=== PATIENT | female | born 1995 | race Asian ===

== ENCOUNTER 2022-05-28 08:03 | Observation (INO) ==
--- NOTE | 2022-05-23 10:31 | Anesthesiology Consultation ---
Date of Service May 23, 2022 Assessment & Plan (1) Encounter for pre-operative examination: Plan - s/p hysterectomy and salpingectomy 04/01/2223 Grade 1 view, MAC 3, ETT 7.5. - COVID screening: Per addressing machine operator on 05/23/2022: Travel screen negative, no known COVID-19 positive contacts or current COVID-19 related symptoms in past 2 weeks. To surgeon's discretion if preop COVID testing is needed. Chart Review Chart Review: Acceptable Risk for Surgery and Patient NOT seen in Pre Admission Testing History Surgery Operation Date: 05/28/22 07:30 Proposed Procedures p Bilateral Mastectomy with Free Nipple Grafting and Suction Assisted Lipectomy - Kira Rowe MD Height/Weight Height: 5 ft 7 in Weight: 98.43 kg Allergies Allergy/AdvReac Type Severity Reaction Status Date / Time No Known Allergies Allergy Verified 05/23/22 09:38 Medications Home Medications Medication Instructions Recorded Confirmed Last Taken testosterone cypionate 200 mg/mL 50 mg subcut WK 01/08/21 05/23/22 03/23/22 20:00 intramuscular oil fluoxetine 40 mg capsule (Prozac) 40 mg PO QAM 12/24/21 05/23/22 03/31/22 22:00 aprepitant 40 mg capsule 40 mg PO DAILY 1 day #1 cap 05/13/22 05/23/22 Unknown cephalexin 500 mg capsule 500 mg PO TID 7 days #21 caps 05/13/22 05/23/22 Unknown oxycodone-acetaminophen 5 mg-325 1 tab PO Q4H PRN pain 3 days #18 05/13/22 05/23/22 Unknown mg tablet (Percocet) tabs Past Medical History Medical History ADHD Asthma no inhalers > very mild Depression with anxiety Gender dysphoria in adult Migraines infrequent Polycystic ovaries Tuberculosis 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 baby > treated Past Family History Family History Grandmother (Maternal) Cervical cancer Denies family history of Ovarian cancer Breast cancer Colorectal cancer Past Surgical History Surgical History H/O removal of cyst axillary area H/O wisdom tooth extraction S/P laparoscopic appendectomy S/P laparoscopic hysterectomy mar 2022, bilateral salpingectomies Social History Smoking Status: Never smoker Do You Dip or Chew Tobacco: No Hx Alcohol Use: No Hx Substance Use: No substance use type: does not use Lab Results Anesthesia Preop Results Results Anesthesia Widget: WBC 5.93 K/ul (4.8-10.8) 05/15/22 Hgb 16.4 g/dl (12.0-16.0) H 05/15/22 Hct 50.6 % (37.0-47.0) H 05/15/22 Plt 312 K/uL (130-400) 05/15/22 Na 139 mmol/L (136-145) 05/15/22 K 3.9 mmol/L (3.5-5.1) 05/15/22 Cl 103 mmol/L (98-107) 05/15/22 CO2 27 mmol/L (21-32) 05/15/22 BUN 11 mg/dl (6-23) 05/15/22 Creat 0.82 mg/dl (0.6-1.2) 05/15/22 Glucose Level 107 mg/dl (70-99(Fasting)) H 05/15/22 PT 10.3 Seconds (9.0-12.0) 05/15/22 INR 1.0 (0.9-1.1) 05/15/22 POC Ur Test NEG (NEG) 04/01/22 Blood Type A Positive 04/01/22 Antibody Screen NEGATIVE 04/01/22
[~2022-05-28 08:03] MED LIST: LR 15ML/HR IV SCH; ceFAZolin 2000MG 2,000 MG/15 ML SYR IV SCH
[2022-05-28] MEDS ORDERED: ROCURONIUM BROMIDE 10 MG/ML 5 ML VIAL IV ONE ×4 (08:53→13:09)
[2022-05-28] MEDS ORDERED: LIDOCAINE 2% MPF LOCAL 5 ML VIAL ONE (08:53)
[2022-05-28] MEDS ORDERED: fentaNYL citrate PF 100 MCG/2 ML VIAL ONE ×3 (08:53→13:09)
[2022-05-28] MEDS ORDERED: ONDANSETRON INJ 2 MG/ML 2 ML VIAL ONE (08:53)
[2022-05-28] MEDS ORDERED: PROPOFOL IV EMULSION 10 MG/ML 20 ML VIAL IV ONE ×2 (08:53→13:09)
[2022-05-28] MEDS ORDERED: MIDAZOLAM HCL 1 MG/ML 2ML VIAL ONE (08:53)
[2022-05-28] MEDS ORDERED: ATROPINE SULFATE 0.1 MG/ML 10ML SYR IV PRN (09:02)
[2022-05-28] MEDS ORDERED: ONDANSETRON INJ 2 MG/ML 2 ML VIAL IV PRN ×2 (09:02→16:00)
[2022-05-28] MEDS ORDERED: ePHEDrine sulfate 50 MG/ML AMP IV PRN (09:02)
[2022-05-28] MEDS ORDERED: fentaNYL citrate PF 100 MCG/2 ML VIAL IV PRN (09:02)
--- NOTE | 2022-05-28 10:07 | History & Physical Bridge Note ---
Date of Service May 28, 2022 History & Physical Bridge Note I have examined the patient, reviewed the History & Physical and in the interval since the performance of the History & Physical I have noted the following changes of clinical significance: no changes noted
[2022-05-28] MEDS ORDERED: ACETAMINOPHEN 1000 MG/100 ML IV IV ONE (10:18)
[2022-05-28] MEDS ORDERED: LIDOCAINE/EPINEPHRINE 1% 20 ML VIAL ONE (10:20)
[2022-05-28] MEDS ORDERED: EPINEPHrine INJ 1 MG/ML AMP ONE (10:20)
[2022-05-28] MEDS ORDERED: LIDOCAINE 1% LOCAL 20 ML VIAL ONE (10:20)
[2022-05-28] MEDS ORDERED: BUPIVACAINE 0.25% PF 30 ML VIAL ONE (10:21)
[2022-05-28] MEDS ORDERED: FAMOTIDINE/PF 20 MG/2 ML VIAL IV ONE (13:00)
[2022-05-28] MEDS ORDERED: KETAMINE 50 MG/5 ML SYRINGE ONE (13:13)
[2022-05-28] MEDS ORDERED: ceFAZolin 330 MG/ML 1 GM VIAL ONE (13:48)
[2022-05-28] MEDS ORDERED: SUGAMMADEX SODIUM 200 MG/2 ML VIAL IV ONE (14:13)
--- NOTE | 2022-05-28 14:24 | Post Operative Brief Note ---
PG Immediate Post Op with CF Date of Surgery May 28, 2022 Pre & Post Diagnosis Operation Date: 05/28/22 09:50 Pre-Op Diagnosis: Gender Dysphoria in Adult Post-Op Diagnosis: Gender Dysphoria in Adult I identified the patient and participated in the time-out.: Yes Procedure Operation Date: 05/28/22 09:50 Actual Procedures p Bilateral Non-Cancerous Mastectomy with Free Nipple Grafting and Suction Assisted Lipectomy of Trunk(Bilateral) - Kira Rowe MD Surgeon Kira Rowe MD Striker Out Rayne Mccoy PA-C Estimated Blood Loss 20 Findings Consistent with Post-Op Diagnosis Specimens Specimen Description: A. Left Breast Tissue B. Right Breast Tissue Drains Husam-Godoy Drain
--- NOTE | 2022-05-28 14:39 | Operative Report ---
PG Post Operative Report Pre & Post Diagnosis Operation Date: 05/28/22 09:50 Pre-Op Diagnosis: Gender Dysphoria in Adult Post-Op Diagnosis: Gender Dysphoria in Adult I identified the patient and participated in the time-out.: Yes Procedure Operation Date: 05/28/22 09:50 Actual Procedures p Bilateral Non-Cancerous Mastectomy with Free Nipple Grafting and Suction Assisted Lipectomy of Trunk(Bilateral) - Kira Rowe MD Surgeon Kira Rowe MD Nutrition Specialist Rayne Mccoy PA-C Estimated Blood Loss 20 Findings Consistent with Post-Op Diagnosis Specimens bilateral breast tissue to pathology Drains [id number] Anesthesia Type General Complications none Indications transgender male desiring gender affirming mastectomy Description of Procedure The risks benefits and alternatives of the procedure were explained the patient agreed and signed consent. He was identified and marked in the preoperative holding area. I marked the incisions along the inframammary folds and made the superior incision in an elliptical fashion in order to provide a horizontal scar pattern if possible. I also marked the position where anticipated placing the nipple areolar complex and had the patient confirmed the site. Site marking was adjusted due to patient preference. He is brought to the operating room where he was placed under general anesthesia in supine position without incident. Surgical site was prepped and draped sterilely. A time-out procedure was performed. 1% lidocaine with epinephrine was used to anesthetize the planned incisions. I began the procedure on the left side by making a small stab incision along the superior incision. Tumescent fluid consisting of lidocaine plain, epinephrine, and lactated Ringer's was infiltrated along the lateral border of the pectoralis major. Liposuction to this area was performed using a 3 mm suction cannula until there was improvement in the volume and contour of the axillary breast and fat covering lateral pectoralis. A total of 400 cc of tumescent fluid was used and there was a return of approximately 350 cc of lipoaspirate. End point of liposuction was improvement in contour and bloody aspirate. The left nipple areolar complex was harvested as a free nipple graft. I elected to use a 28 mm size nipple areolar complex. It was harvested using a 15 blade scalpel and was defatted using a curved iris scissor. It was placed on the back table in a saline soaked sponge until I was ready to place the graft. I began by making the inferior incision using 15 blade scalpel. Incision was deepened through dermis using electrocautery, and deepened down to the chest wall. I began raising the breast off of underlying pectoralis fascia, divided the breast in the midline and then temporarily sutured it to the inframammary fold to confirm wound closure would be possible. I then marked the superior incision, which was made with a 15 blade scalpel and deepened using electrocautery. The breast was passed off as specimen. Superiorly, breast was undermined to the clavicle and the superior flap was further thinned until it was of uniform thickness, approximately 3 cm in thickness and equal to the thickness of the abdominal subcutaneous tissue. Throughout dissection, hemostasis was achieved using the bovie. I did perform some additional undermining inferiorly along the inframammary fold to facilitate closure and disrupt the inframammary fold. Prior to closure, the wound was irrigated, examined for hemostasis. A 15 Yemeni Sunny drain was placed in the wound bed and brought out through a separate stab incision laterally.Superficial fascia and deep dermis was closed using 2-0 Vicryl interrupted sutures, superficial dermis closed using 3-0 PDO running Quill suture, and subcuticular wound closure was performed using 3-0 Monocryl. Following closure, the nipple areolar complex was inset. I made a circular incision at the lateral border of pectoralis and just superior to the incision. This was de-epithelialized. The nipple areolar graft was inset first using 5-0 plain gut suture. An identical procedure was performed on the right side.8 4-0 silk tie over bolster sutures were placed, and a Xeroform and cotton bolster was placed. An identical procedure was performed on the right side. There is excellent symmetry at the close of the case. Dermabond Prineo was applied to the incisions. Dry dressing followed by a binder were placed. Rayne Mccoy was present and scrubbed throughout the entire procedure and was instrumental in assisting in retraction, assisting in simultaneous wound closure, and preparing the nipple areolar complex grafts. I attest to the content of the Intraoperative Record and any orders documented therein. Any exceptions are noted below.
--- NOTE | 2022-05-28 14:56 | Anesthesiology Progress Note ---
Date of Service May 28, 2022 Anesthesia Post Procedure Vital Signs Vital Signs: Temp Pulse Pulse Resp BP Pulse Ox O2 Del Method 05/28/22 14:45 36.2 C L 85 20 97/59 L 93 Oxymask 05/28/22 14:37 36.2 C L 88 14 110/55 L 93 Oxymask 05/28/22 08:29 36.8 C 84 20 136/70 96 Room Air O2 Flow Rate 05/28/22 14:45 10 05/28/22 14:37 10 05/28/22 08:29 Transfer of Care Handoff Completed per policy Notes Mental Status: alert / awake / arousable and participated in evaluation Patient Amnestic to Procedure: Yes Nausea / Vomiting: adequately controlled Pain: adequately controlled Airway Patency, RR, SpO2: stable & adequate BP & HR: stable & adequate Hydration State: stable & adequate Anesthetic Complications: no major complications apparent and Pt Satisfied with anesthetic care
[2022-05-28] MEDS ORDERED: PROMETHAZINE HCL 12.5 MG in SODIUM CHLORIDE 0.9% 50 ML IV PRN (16:00)
[2022-05-28] MEDS ORDERED: diphenhydrAMINE 50 MG/ML VIAL IV PRN (16:00)
[2022-05-28] MEDS ORDERED: oxyCODONE/ACETAMINOPHEN 5mg/325mg TAB PO PRN ×2 (16:00)
[2022-05-28] MEDS ORDERED: MoRPHine SULFATE 2 MG/ML CARP IV PRN (16:00)
[2022-05-28] MEDS ORDERED: ACETAMINOPHEN 325 MG TAB PO PRN (16:00)
[2022-05-28] MEDS ORDERED: MoRPHine SULFATE 4 MG/ML 1 ML CARP\\VIAL IV PRN (16:00)
[2022-05-28] MEDS ORDERED: diphenhydrAMINE Capsule 25 MG CAP PO PRN (16:00)
[2022-05-28] MEDS ORDERED: LORazepam 0.5 MG TAB PO PRN (16:00)
[2022-05-28] MEDS: ceFAZolin 2000MG 2,000 MG/15 ML SYR IV SCH ×2 (18:33→23:24)
[2022-05-28] MEDS: D5W AND 1/2NSS + 20MEQ KCL 20 MEQ/1,000 ML BAG IV SCH (18:38)
[2022-05-29] MEDS: D5W AND 1/2NSS + 20MEQ KCL 20 MEQ/1,000 ML BAG IV SCH (06:26)
--- NOTE | 2022-05-29 08:34 | Surgery Progress Note ---
Date of Service May 29, 2022 Assessment & Plan (1) Gender dysphoria in adult: Plan: Fitz is doing well. D/C home today with office follow-up tomorrow. Admission and Anticipated Discharge Date Admission Date: May 28, 2022 Subjective Fitz is resting in bed, pain controlled. He is tolerating a regular diet, voiding and ambulating. Physical Exam Physical Exam: drains with 20cc serosang output. abd binder and gauze dressings in place- no s aturation on gauze dressings. Results & Data Vital Signs (Past 12 Hours) Vital Signs Temp Pulse Resp BP Pulse Ox O2 Del Method O2 Flow Rate 05/29/22 07:40 37.1 C 100 H 18 120/75 94 Room Air 05/29/22 03:00 37.1 C 99 H 18 116/67 94 Room Air 05/28/22 22:49 36.9 C 94 H 18 114/70 99 Nasal Cannula 2 05/28/22 21:59 Nasal Cannula 2 PG Care Time/CCT Total # of Minutes Spent Total Time Spent with Patient: Total time spent is greater than 50% in coordination of care (as documented) at patient's floor/unit and/or counseling patient: Coding Level of Care Code 31548 Post Operative Follow-Up Diagnoses Gender dysphoria in adult F64.0
[2022-05-29] MEDS ORDERED: FLUoxetine HCL 20 MG CAP PO SCH (09:00)
[2022-05-29] MEDS ORDERED: MULTIVITAMIN TAB PO SCH (09:00)
--- NOTE | 2022-05-31 08:52 | Discharge Summary ---
Date of Service May 31, 2022 Admission HPI Per Admitting Provider Patient with history of gender dysphoria. Admission Exam Per Admitting Provider See admission H&P. Principal Diagnosis gender dysphoria Discharge Exam drains with serosang output. abd binder in place, no saturation on gauze Discharge Data Allergies Allergy/AdvReac Type Severity Reaction Status Date / Time No Known Allergies Allergy Verified 05/28/22 08:36 Procedures Performed Operation Date: 05/28/22 09:50 Actual Procedures p Bilateral Non-Cancerous Mastectomy with Free Nipple Grafting and Suction Assisted Lipectomy of Trunk(Bilateral) - Kira Rowe MD Hospital Course (1) Gender dysphoria in adult: Patient presented to [facility] with history of gender dysphoria. He was taken to the OR and underwent bilateral noncancerous mastectomy with free nipple graft, liposuction. There were no intraoperative complications. He was taken to recovery and transferred to med/surg for observation. On POD#1, he was feeling well. He was tolerating a regular diet and ambulating. On exam, his vitals were stable. His incisions were CDI. He was discharged home with instructions to follow-up in the office in one day. Total Time Total Time Spent Total Time Spent (In Minutes): 20 Total Time Includes: Examination of the Patient, Medication Reconciliation and Communication With Other Providers Discharge Plan Discharge Items Patient Disposition: Home - Self-Care Reason For Visit: Gender Affirming Sugery Discharge Diagnosis: s/p bilateral non-cancerous mastectomy Activity: As commented below Non-emergency contact: Surgeon Call non-emergency contact if: you have any medication questions, your pain is not controlled, you have a fever, your wound has increased redness and your wound has increased drainage Follow-up/Referrals: Rayne Mccoy PA-C [Physician Circus Laborer] - 05/30/22 9:45 am (APPOINTMENT WITH ANNIE BYNUM PA-C) Maggie Thomas MD [Primary Care Provider] - Diet: Regular Addtl Attending Provider Instructions: ACTIVITY RECOMMENDATIONS: __Normal activities _x_No bending, lifting or straining. Keep arms at shoulder height or below __No driving __Driving allowed when you are off pain medications _x_Walking permitted __You should have help at home for ___ days DRESSINGS: __No dressings required _x_Keep dressings dry/in place until first office visit __Remove dressings ___ and leave dressings off __Apply ice ___ days __Remove dressings and reapply garment __Apply antibiotic ointment (Bacitracin, Neosporin, etc) to wounds 3-4 times/day for 10 days BATHING: _x_Keep dressings dry _x_Sponge bathing permitted away from surgical area __Showering permitted _x_No swimming, hot tubs or soaking in a tub MEDICATIONS: Resume previous medications unless instructed otherwise by your surgeon. _x_Do not use aspirin, Motrin, Advil or Ibuprofen as these may promote bleeding. Please use Tylenol. _x_Prescription(s) provided: pain medication and antibiotics were provided at your last office visit. Begin antibiotics today OTHER INSTRUCTIONS: _x_Record drain output 2-3 times per day SPECIAL CARE INSTRUCTIONS: * It is normal to have a mild fever after surgery. If your temperature is higher than 101.5 degrees F, please call the office at [phone]. * Constipation is a typical side effect of pain medication. An [id number] stool softener will help relieve this. * Leaking around surgical drains may occur and should not cause concern. Sometimes these drains become clogged. If this happens, remove the bulb and milk the clot out of the tube, then replace the bulb. * Drainage from wounds after liposuction is normal and should be expected. Garments will become soiled. You should protect furniture and bedding. This drainage should mostly subside within 2-3 days. Leave garments in place unless instructed to remove them. * If you have unusual drainage from a wound or are concerned you have an infection or have any questions or concerns, please call the office at [phone]. FOLLOW UP VISIT: If not already scheduled, please call the office, , when you return home after surgery to schedule an appointment to be seen in _1__ days. Pending Studies at Discharge: Yes Stand-Alone Forms: My [facility], Pain - Opioid Pain Management, Smoking Cessation Medications and DC Order Prescriptions: Continued fluoxetine [Prozac] 40 mg capsule 40 mg PO QAM cephalexin 500 mg capsule 500 mg PO TID 7 Days Qty: 21 0RF Rx Instructions: Please begin prescription once discharged home from surgery. aprepitant 40 mg capsule 40 mg PO DAILY 1 Days Qty: 1 0RF Rx Instructions: Take capsule 30 minutes before arriving to the hospital. oxycodone-acetaminophen [Percocet] 5-325 mg tablet 1 tab PO Q4H PRN (Reason: pain) 3 Days Qty: 18 0RF Rx Instructions: Initial therapy. testosterone cypionate 200 mg/mL oil 50 mg subcut WK Discharge Orders: Discharge Order (Routine); Ordered 05/29/22 Ordered By: Rayne Dugan/Other Patient Handouts: Mastectomy: After Surgery Admission Data Admit Date/Time: 05/28/22 14:27 Attending Provider: Kira Rowe Admit Provider: Kira Rowe Primary Care Provider: Maggie Thomas Other Interventions: Discharge Summary Assessment (RN) Last Done: 05/29/22 12:02 Coding Level of Care Code 63967 OBS Care - Discharge Diagnoses Gender dysphoria in adult F64.0
== END 2022-05-29 17:28 | disposition home or self-care (01) ==
LOC: ASU 08:03 → 3E 08:03